=== PATIENT | female | born 1995 | race Two or more races ===

== ENCOUNTER 2018-11-09 03:12 | Inpatient (IN) | payer OTHER ==
[~2018-11-09] VITALS: Ht 175.3 cm; Wt 59.0 kg
[2018-11-09] MEDS ORDERED: PANADOL EXTRA500 MG (03:34)
== END 2018-11-11 19:05 | DRG 819 ==
LOC: ER 03:12 → SEC-K 13:07 → OB/GYN 13:07 → SURG 21:43 → OB/GYN 22:33
PROVIDERS: ADMIT Obstetrics & Gynecology
PROC: 0WJG4ZZ Inspection of Peritoneal Cavity, Percutaneous Endoscopic Approach (ICD-10-PCS; 2018-11-09)
PROC: 10D27ZZ Extraction of Products of Conception, Ectopic, Via Natural or Artificial Opening (ICD-10-PCS; principal; 2018-11-09 18:00)
DX: O00.101 Right tubal pregnancy without intrauterine pregnancy (principal); N93.8 Other specified abnormal uterine and vaginal bleeding; R10.2 Pelvic and perineal pain

== ENCOUNTER 2023-08-13 14:23 | Emergency (ER) | payer OTHER ==
[~2023-08-13] VITALS: Ht 175.3 cm; Wt 80.3 kg
[~2023-08-13 14:23] MED LIST: PANADOL EXTRA500 MG
[2023-08-13 17:02] LABS: HEMATOCRIT 38.8 % (36.0-45.00); HEMOGLOBIN 12.8 g/dL (12.0-15.00); MEAN CORPUSCULAR HEMOGLOBIN 27.7 pg (27.00-32.0); PLATELET COUNT 400 K/uL (150-450); RED BLOOD COUNT 4.62 M/uL (4.00-6.00); RED CELL DISTRIBUTION WIDTH 14.6 % (11.5-14.5)
[2023-08-13 17:23] LABS: ALBUMIN 3.8 gm/dL (3.4-5.0); BILIRUBIN TOTAL 0.36 mg/dL (0.3-1.2); CREATININE SERUM 0.61 mg/dL (0.55-1.02); GFR 118.56; GLOBULINA 4.6 G/DL (2.4-3.5); POTASSIUM 3.71 mEq/L (3.5-5.1); TOTAL PROTEIN 8.4 gm/dL (6.4-8.2)
[2023-08-13 17:31] LABS: ERYTHROCYTE SEDIMENTATION RATE 58 mm/hr
== END 2023-08-13 22:24 | disposition left against medical advice (07) ==
LOC: ER 14:24
PROVIDERS: General Practice
DX: S62.635A Displaced fracture of distal phalanx of left ring finger, initial encounter for closed fracture (principal); Y04.1XXA Assault by human bite, initial encounter; Y93.89 Activity, other specified; Y92.89 Other specified places as the place of occurrence of the external cause; M86.8X4 Other osteomyelitis, hand; L03.012 Cellulitis of left finger